=== PATIENT | male | born 1985 | race Caucasian/White ===

== ENCOUNTER 2020-02-23 19:31 | Emergency (ER) | payer OTHER ==
[~2020-02-23] VITALS: Ht 185.4 cm; Wt 136.1 kg
[~2020-02-23 19:31] MED LIST: CEPHALEXIN500 MG PO; FLUOXETINE HCL20 MG PO; GABAPENTIN300 MG PO; GUAIATUSSIN AC10 ML PO; NORCO 5-325 TA1 EACH PO; WELLBUTRIN XL300 MG PO; ZITHROMAX500 MG PO; [UNRECOGNIZED DRUG - OTHER]
== END 2020-02-23 21:01 | disposition home or self-care (01) ==
LOC: ED 19:31
DX: S81.811A Laceration without foreign body, right lower leg, initial encounter (principal); F17.200 Nicotine dependence, unspecified, uncomplicated; W01.198A Fall on same level from slipping, tripping and stumbling with subsequent striking against other object, initial encounter
CPT/HCPCS: 12002; 90471; 90715; 99282-25